=== PATIENT | male | born 1960 | race Caucasian/White ===

== ENCOUNTER 2018-06-12 10:47 | Observation (INO) | payer BC, OTHER ==
--- NOTE | 2018-06-11 21:01 | GHP ---
DATE OF ADMISSION: 06/12/2018 DATE OF SURGERY: 06/12/2018. CHIEF COMPLAINT: Right upper arm pain. HISTORY OF PRESENT ILLNESS: The patient is a 58-year-old who approximately 10 months prior sustained a humerus fracture. The patient underwent nonoperative treatment with apparent uneventful healing. He had a recent onset of increased pain and diminished strength. Upon clinical evaluation, he was noted to have an unstable fracture. PAST MEDICAL HISTORY: Positive for anxiety. MEDICINES: Include bupropion, clobetasol, lorazepam, trazodone, triamcinolone, and zolpidem. ALLERGIES: He lists no drug allergies. SOCIAL HISTORY: Negative for tobacco use. REVIEW OF SYSTEMS: Noncontributory. PHYSICAL EXAM: HEAD: Head is normocephalic. Pupils equal, round, and reactive to light. Extraocular eye movements intact. NECK: Supple. No JVD or lymphadenopathy. CHEST: Clear to auscultation. HEART: Regular rate and rhythm. No murmurs or gallops. ABDOMEN: Soft, nontender, nondistended. GENITAL/RECTAL/BREASTS: Deferred. EXTREMITIES: Revealed tenderness in the mid aspect of his humerus with gross instability in his fracture. ASSESSMENT: Right humeral nonunion. PLAN: The patient is scheduled to undergo open reduction, internal fixation of the humeral nonunion. /[id number]/MODL MTDD
[2018-06-12] MEDS ORDERED: BUPIVACAINE 0.5% 30 ML SDV ONE (11:25)
[2018-06-12] MEDS ORDERED: LR 1,000 ML IV ONE (11:55)
[2018-06-12] MEDS ORDERED: MIDAZOLAM 2 MG/2 ML VIAL IVP ONE (12:37)
--- NOTE | 2018-06-12 12:38 | PDANEPAE ---
ANE History of Present Illness Patient presents for R proximal humerus ORIF ANE Past Medical History - Cardiovascular History Hx Hypertension: Yes Hx Arrhythmias: No Hx Chest Pain: No Hx Coronary Artery / Peripheral Vascular Disease: No Hx CHF / Valvular Disease: No Hx Palpitations: No Cardiovascular History Comment: BORDERLINE HTN, DIET AND EXERCISE CONTROLLED - Pulmonary History Hx COPD: No Hx Asthma/Reactive Airway Disease: No Hx Recent Upper Respiratory Infection: No Hx Oxygen in Use at Home: No Hx Sleep Apnea: No Sleep Apnea Screening Result - Last Documented: Negative - Neurologic History Hx Cerebrovascular Accident: No Hx Seizures: No Hx Dementia: No - Endocrine History Hx Diabetes: No - Renal History Hx Renal Disorders: No - Liver History Hx Hepatic Disorders: No - Neurological & Psychiatric Hx Hx Neurological and Psychiatric Disorders: No Neurological / Psychiatric History Comment: DEPRESSION - Cancer History Hx Cancer: No - Congenital Disorder History Hx Congenital Disorders: No - GI History Hx Gastrointestinal Disorders: No Gastrointestinal History Comment: NA - Other Health History Other Health History: NA - Chronic Pain History Chronic Pain: No - Surgical History Prior Surgeries: COLONOSCOPY 2016 ANE Review of Systems Review of Systems: - Exercise capacity Exercise capacity: >=4 METS METS (RN): 5 METS ANE Patient History - Allergies Allergies/Adverse Reactions: No Known Allergies Allergy (Verified 12/19/13 08:36) - Home Medications Home Medications: Wellbutrin Xl 06/11/18 [Last Taken 06/11/18] traZODone 06/11/18 [Last Taken 06/11/18] - NPO status NPO Since - Liquids (Date): 06/12/18 NPO Since - Liquids (Time): 09:30 NPO Since - Solids (Date): 06/11/18 NPO Since - Solids (Time): 19:30 - Smoking Hx Smoking Status: Never smoked - Family Anes Hx Family Hx Anesthesia Complications: NA ANE Labs/Vital Signs - Vital Signs Blood Pressure: 158/96 Heart Rate: 68 Respiratory Rate: 16 O2 Sat (%): 95 Height: 187.96 cm Weight: 108.862 kg ANE Physical Exam - Airway Neck exam: decreased ROM Mallampati Score: Class 2 Mouth exam: normal dental/mouth exam - Pulmonary Pulmonary: no respiratory distress - Cardiovascular Cardiovascular: regular rate and rhythym - ASA Status ASA Status: II ANE Anesthesia Plan Anesthesia Plan: general endotracheal anesthesia (RBA discussed)
[2018-06-12] MEDS ORDERED: fentaNYL 100 MCG/2 ML INJ ONE ×3 (12:43→17:43)
[2018-06-12] MEDS ORDERED: PROPOFOL 200 MG/20 ML VIAL ONE (12:43)
[2018-06-12] MEDS ORDERED: LIDOCAINE 2% 2 ML INJ ONE (12:45)
[2018-06-12] MEDS ORDERED: ONDANSETRON 4 MG/2 ML VIAL ONE (12:46)
[2018-06-12] MEDS ORDERED: ROCURONIUM 50 MG/5 ML VIAL ONE (12:46)
[2018-06-12] MEDS ORDERED: DEXAMETHASONE 4 MG/ML VIAL ONE (12:46)
[2018-06-12] MEDS ORDERED: ceFAZolin 2 GM/DEXTROSE 100 ML IV ONE (13:03)
[2018-06-12] MEDS ORDERED: HYDROmorphONE/DILAUDID 2 MG/ML INJ ONE (14:52)
[2018-06-12 16:51] LABS: PLATELET COUNT 210 10^3/uL (150-400)
[2018-06-12] MEDS ORDERED: HYDROCODONE/APAP 5/325 TAB PO PRN (16:59)
[2018-06-12] MEDS ORDERED: HYDROmorphONE/DILAUDID 1 MG/ML INJ IVP PRN (16:59)
[2018-06-12] MEDS ORDERED: NALOXONE HCL 0.4 MG/ML INJ IVP PRN ×2 (16:59→18:27)
[2018-06-12] MEDS ORDERED: oxyCODONE IR 5 MG TAB PO PRN (16:59)
[2018-06-12] MEDS ORDERED: ONDANSETRON 4 MG/2 ML VIAL IVP PRN ×2 (16:59→18:25)
[2018-06-12] MEDS ORDERED: LR 500 ML IV PRN (16:59)
[2018-06-12] MEDS ORDERED: SUGAMMADEX SODIUM 200 MG/2 ML VIAL IVP ONE (17:11)
[2018-06-12] MEDS ORDERED: morphINE PCA 30 MG/30 ML PCA IV PRN (17:41)
--- NOTE | 2018-06-12 17:41 | POSTOPPROG ---
Post Op Note Date of Operation: 06/12/18 Surgeon: Jose Shearer Anesthesia: GET(General Endotracheal) Pre-op Diagnosis: R humerus non union Post-op Diagnosis: Same Procedure: ORIF R Humerus non union Inf/Abcess present in the surg proc area at time of surgery?: No EBL: 100-500
[2018-06-12] MEDS ORDERED: HYDROmorphONE/DILAUDID 1 MG/ML INJ ONE (17:43)
[2018-06-12] MEDS ORDERED: D5W 1/2 NS W/ 20 KCl/L 1,000 ML IV SCH (17:45)
[2018-06-12] MEDS: fentaNYL 100 MCG/2 ML INJ IVP PRN ×2 (17:45→18:09)
--- NOTE | 2018-06-12 17:47 | POSTANESTH ---
Post Anesthetic Evaluation Cardiovascular Status: Similar to Pre-Op Cond Respiratory Status: Similar to Pre-op Cond. Level of Consciousness/Mental Status: Can Participate in Eval Pain Control: Adequate, Prn Tx Ordered Nausea/Vomiting Control: Adequate, Prn Tx Ordered Complications Possibly Related to Anesthesia: None Noted (surgeon concerned about possible radial n injury from the procedure. Not from Anesthesia. No block -per surgeon request.)
[2018-06-12] MEDS ORDERED: TEMAZEPAM 15 MG CAP PO PRN (18:25)
[2018-06-12] MEDS ORDERED: PROMETHAZINE HCL 25 MG/ML INJ IVP PRN (18:25)
[2018-06-12] MEDS ORDERED: BISACODYL 10 MG SUPP PR PRN (19:54)
[2018-06-12] MEDS ORDERED: MAGNESIUM HYDROXIDE 30 ML UDCUP PO PRN (19:54)
[2018-06-12] MEDS ORDERED: LACTULOSE 20 GM/30 ML UDCUP PO PRN (19:54)
[2018-06-12] MEDS ORDERED: POLYETHYLENE GLYCOL 3350 17 GM PKT PO PRN (19:54)
[2018-06-12] MEDS: SENNOSIDES/DOCUSATE SODIUM TAB PO SCH (19:59)
[2018-06-12] MEDS: HYDROCODONE/APAP 5/325 TAB PO PRN (20:00)
[2018-06-12] MEDS: oxyCODONE IR 5 MG TAB PO PRN ×2 (20:34→22:03)
--- NOTE | 2018-06-12 21:16 | GOP ---
DATE OF OPERATION: 06/12/2018 SURGEON: Jose Shearer MD ANESTHESIA: General. PREOPERATIVE DIAGNOSIS: Nonunion, right humerus. POSTOPERATIVE DIAGNOSIS: Nonunion, right humerus. PROCEDURE PERFORMED: 1. ORIF R Humerus non-union 2. Radial nerve neuroplasty FINDINGS: ESTIMATED BLOOD LOSS: 500 mL. INDICATIONS: Patient is a 58-year-old right-hand dominant man, who approximately 10 months prior sustained a humerus fracture. The patient underwent nonoperative management for his fracture. He had apparent healing of his fracture with acceptable alignment, and he had no pain or instability with vigorous stress examination of the fracture site and was pursuing physical therapy, which included lifting. Approximately 1 week prior to surgery, he presented with increasing pain and a feeling of weakness in his arm. Upon clinical and radiographic evidence, he had gross motion at his fracture site consistent with either a nonunion or a knee fracture through his callus formation. Based on this fact, the area was recommended operative treatment consisting of open reduction, internal fixation be pursued. The patient acknowledged he understood the potential risks, including but not limited to bleeding, infection, neurovascular damage, loss of limb and limb function ( specifically, radial and axillary nerve dysfunction), malunion, nonunion, need for hardware removal, pain or functional limitations despite operative treatment and anesthetic risks. He acknowledged he understood the potential risks, planned procedure, and postoperative plan well, and had all questions answered prior to surgery. He gave his consent for the operative procedure. DESCRIPTION OF PROCEDURE: The patient was brought to the operating room after IV antibiotics were administered. He was placed in a supine position. General anesthetic was administered. Bump was placed underneath the right upper extremity. The right upper extremity, anterior shoulder were prepped and draped in standard sterile fashion. The anterolateral approach to the humerus was utilized for exposure. A long incision was made starting near the acromion and extending along the lateral aspect of the upper arm toward the lateral condyle. Skin and subcutaneous tissue were sharply incised. Cautery unit was utilized to dissect down to the fascia layer overlying the deltoid and biceps. The interval between the anterior and middle heads of the deltoid was utilized for proximal exposure. In the midaspect, the interval between the biceps and brachialis was utilized. Distally, the interval between the brachialis and brachial radialis was utilized for exposure to the humerus. Meticulous dissection with the tenotomy scissors was utilized, taking care to avoid damage to neurovascular structures. The axillary nerve was identified proximally and carefully protected throughout the surgery. Distally, the radial nerve was noted coursing along the posterolateral aspect of the humerus. This similarly was carefully freed and retracted at all times during portions of the operation where the nerve was at danger. The fracture site was identified at the middiaphyseal region utilizing the interval between the biceps and the brachialis. Fibrous interposed tissue was taken down at the fracture site carefully, freeing up the overlying fibrous tissue initially with tenotomy scissors and later using a rongeur. The oblique fracture area was freed of its fibrous overgrowth with a curette. The medullary canal was drilled multiple times with a 2.0 mm drill bit and then further roughened along the long oblique fracture lines with a fine-tipped chisel, "narendra petaling" the surfaces. A serrated reduction clamp was utilized to provide a provisional reduction of the fracture. Fluoroscopic views confirmed favorable reduction. A 12-hole 4.5 mm narrow DC plate was contoured, proximal and distal aspects, to fit the lateral aspect of the humerus. The plate was slid extra periosteally proximally underneath the portion of the deltoid and distal underneath the portion of the brachialis after creating a pathway for the plate with a periosteal elevator. The overall plate placement was checked fluoroscopically and felt to be favorable. In the proximal segment along the lateral aspect of the humerus, a 4.5 mm cortical screw was placed in the second-most proximal hole in the plate. Just proximal to the fracture plane, the plate was reduced to the proximal segment and secured with a unicortical 4.5 mm screw stabilizing the plate. Utilizing a serrated reduction clamp at the fracture site, the fracture was reduced correcting for translation, varus/valgus, procurvatum and recurvatum, and rotational discrepancies. Fluoroscopic views confirmed favorable reduction. With the fracture held in reduced position, distal fixation was initially accomplished with 4.5 mm bicortical screws placed just distal to the fracture and in the second-most distal hole in the plate. During screw placement, the radial nerve was visualized and carefully retracted. Additional fixation was accomplished both proximally and distally utilizing 4.5 mm cortical locking screws. The fluoroscopic views were obtained, which showed favorable alignment of the fracture and hardware placement. After reduction of the fracture, bleeding, which was occurring throughout the case, ceased in the upper arm back to very minimal levels. Attention was directed toward closure. The deep fascial layer was closed with 2-0 Vicryl suture in interrupted fashion. Subcutaneous tissue was closed with 3-0 Vicryl suture in interrupted fashion. Skin was closed with skin [place]. 0.5% Marcaine without epinephrine was injected in the wound sites. The wounds were dressed with sterile Adaptic, 4 x 4, and OpSite. The patient was taken to the recovery room, extubated in stable condition postoperatively. All sponge, needle, and instrument counts were reported to be correct. OPERATION PERFORMED: 1. Open reduction, internal fixation, right humeral nonunion. 2. Intraoperative use of fluoroscopy. DRAINS: None. COMPLICATIONS: None. PLAN: The patient will be admitted for overnight observation. Neurovascular examination in the recovery room showed intact sensation throughout his upper extremity. He had diminished ability to extend his wrist and fingers consistent with radial nerve motor dysfunction. As the nerve was visualized during all portions of the case where it was potentially "at risk," it was not felt that the nerve was being compressed by hardware or had been damaged. 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 It was not felt that the exploration was warranted. /[id number]/MODL MTDD
[2018-06-12] MEDS: ceFAZolin 2 GM/DEXTROSE 100 ML IV SCH (22:07)
[2018-06-13] MEDS: HYDROCODONE/APAP 5/325 TAB PO PRN (00:32)
[2018-06-13] MEDS: ceFAZolin 2 GM/DEXTROSE 100 ML IV SCH (05:18)
--- NOTE | 2018-06-13 05:59 | SOAPPROG ---
SOAP Progress Note Assessment/Plan: Assessment: S/P ORIF R humerus non union Pain tolerable Radha po Partial numbness thumb Able to partially extend thumb dip, IF DIP Dressing intact, no D/C Plan: D/C home Observation for radial n. 06/13/18 05:57 Objective: Vital Signs Temp Pulse Resp BP Pulse Ox 36.5 C 62 17 119/78 94 06/13/18 04:00 06/13/18 04:00 06/13/18 04:00 06/13/18 04:00 06/13/18 04:00 Microbiology 06/12/18 14:42 Gram Stain - Final Arm - Swab Laboratory Results 06/12/18 16:37 06/11/18 06/12/18 06/13/18 05:59 05:59 05:59 Intake Total 1870 Output Total 1950 Balance -80 ICD10 Worksheet Patient Problems: Problems Problem Status Onset Fracture of humerus with nonunion Acute - ICD10 Problem Qualifiers (1) Fracture of humerus with nonunion Qualifiers: Humerus Location: shaft Fracture type: closed Fracture morphology: oblique Fracture alignment: displaced Laterality: right Qualified Code(s) : S42.331K - Displaced oblique fracture of shaft of humerus, right arm, subsequent encounter for fracture with nonunion
[2018-06-13] MEDS: oxyCODONE IR 5 MG TAB PO PRN ×3 (06:02→12:44)
[2018-06-13 07:40] VITALS: BP 128/86
[2018-06-13] MEDS: SENNOSIDES/DOCUSATE SODIUM TAB PO SCH (09:17)
--- NOTE | 2018-06-13 17:46 | ASMTLACE ---
LACE Length of stay for Answers: 2 days current admission Acuity / Level of Answers: No Care: Did the patient have an inpatient admission? Comorbidities - select Answers: Other Notes: HTN all that apply # of Emergency department Answers: 0 visits in the last 6 months Social determinants Answers: Mental health diagnosis (anxiety, depression, pers onality disorders, etc.) Score: 6 Date Signed: 06/13/2018 04:06 PM Electronically Signed By:SALEEM Fallon
== END 2018-06-13 12:54 | disposition home or self-care (01) ==
LOC: FSGY 10:47 → F3N 17:39
PROVIDERS: ADMIT Orthopaedic Surgery Foot and Ankle Surgery; ATTEND Orthopaedic Surgery Foot and Ankle Surgery
PROC: 0PSC04Z Reposition Right Humeral Head with Internal Fixation Device, Open Approach (ICD-10-PCS; principal; 2018-06-12 12:30)
DX: S42.201K Unspecified fracture of upper end of right humerus, subsequent encounter for fracture with nonunion (principal); X58.XXXD Exposure to other specified factors, subsequent encounter; Z23 Encounter for immunization
CPT/HCPCS: 23615; 76001; 90471; G0378; C1713; G0008; J0690; J1100; J1170; J2250; J2405; J2704; J3010